=== PATIENT | male | born 1980 | race Caucasian/White ===

== ENCOUNTER 2018-08-20 02:59 | Emergency (ER) | payer OTHER ==
[2018-08-20] MEDS: DEXAMETHASONE 10 MG/ML 1 ML INJ IM (03:45)
[2018-08-20] MEDS: FAMOTIDINE 20 MG TAB PO (03:46)
== END 2018-08-20 04:16 | disposition home or self-care (01) ==
LOC: FTE 02:59
DX: R21 Rash and other nonspecific skin eruption (principal); F17.210 Nicotine dependence, cigarettes, uncomplicated
CPT/HCPCS: 96372; 99284-25

== ENCOUNTER 2018-12-10 03:55 | Emergency (ER) | payer OTHER ==
[2018-12-10] MEDS: LIDOCAINE/MYLANTA 40 ML BTL PO (06:53)
[2018-12-10] MEDS: BELLADONNA/PHENOBARBITAL TAB PO (06:53)
== END 2018-12-10 08:25 | disposition home or self-care (01) ==
LOC: FTE 03:55
DX: K21.9 Gastro-esophageal reflux disease without esophagitis (principal); F17.210 Nicotine dependence, cigarettes, uncomplicated
CPT/HCPCS: 99283; Z7610